=== PATIENT | female | born 1975 | race Caucasian/White ===

== ENCOUNTER → 2016-11-12 | Outpatient (CLI) | payer OTHER ==
[~2016-11-12] MED LIST: ACETAMINOPHEN325 M1 PO; CITRATE OF MAG296 ML PO; CLARITIN10 MG PO; COLACE100 MG PO; IBUPROFEN 400400 M2; LEVOTHROID100 MC1 PO; LEVOXYL75 MCG PO; NORCO 5-325 TA1 EACH PO; PRENATAL COMPL1 EACH PO; STOOL SOFTENER50 MG PO; ZYRTEC10 M2 PO
== END ==
LOC: CAT 10:41
DX: R10.31 Right lower quadrant pain (principal)